=== PATIENT | female | born 1950 | race African-American/Black ===

== ENCOUNTER 2016-10-07 18:36 | Emergency (ER) | payer MEDICARE, MEDICAID ==
[~2016-10-07] VITALS: Ht 172.7 cm; Wt 113.4 kg
[~2016-10-07 18:36] MED LIST: AMIT50TA3 PO; AMLO1CAP9 PO; CA C1TAB70 PO; CALC-20 PO; MULT1TAB PO; RIVA10TA PO; SIMV40TA5 PO; ZOLP10TA2 PO
[2016-10-07] MEDS ORDERED: RIVAROXABAN 10 MG TABLET PO SCH (19:00)
--- NOTE | 2016-10-07 19:11 | NUR ---
PT TAKES MED AURY OUT FOR 1 WEEK WE DO NOT CARRY THIS MED MD GAVE RX PT. VERBALIZED UNDERSTANDING OF AFTERCARE INSTRUCTIONS.Patient discharged to home in stable condition. Written and verbal after care instructions given. Patient verbalizes understanding of instruction.
[2016-10-07 19:14] VITALS: BP 145/85
== END 2016-10-07 19:16 | disposition home or self-care (01) ==
LOC: ER 18:42
DX: Z76.0 Encounter for issue of repeat prescription (principal); E11.9 Type 2 diabetes mellitus without complications; I10 Essential (primary) hypertension; Z86.711 Personal history of pulmonary embolism; Z79.01 Long term (current) use of anticoagulants; Z86.718 Personal history of other venous thrombosis and embolism
CPT/HCPCS: 99283; A4606 ×2; Z7610

== ENCOUNTER 2016-12-08 20:55 | Inpatient (IN) | payer MEDICARE, MEDICAID ==
[~2016-12-08] VITALS: Ht 165.1 cm; Wt 123.4 kg
--- NOTE | 2016-12-08 21:05 | NUR ---
PT BIB DAUGHTER, WC TO ER BED 7 PT C/O MID STERNAL CHEST PAIN WITH SOB X 1 DAY, PT AOX3 RR EVEN AND UNLABORED. NO SOB NOTED. NAD NOTED. NO NVD AT THIS TIME. PT NOT DIAPHORETIC. PT GOWNED AND PLACED ON MONITOR. DR. CALIXTO AT BEDSIDE. PT STATES HX OF PE AND ON BLOOD THINNERS.
[2016-12-08 21:14] LABS: BASOPHILS % (AUTO) 0.4 % (0.0-2.0); EOSINOPHILS # (AUTO) 0.1 /CMM (0.0-0.7); EOSINOPHILS % (AUTO) 1.5 % (0.0-6.0); HEMATOCRIT 43 % (33-45); HEMOGLOBIN 14.1 g/dL (11.5-14.8); LYMPHOCYTES # (AUTO) 1.8 /CMM (0.8-4.8); LYMPHOCYTES % (AUTO) 19.7 % (20.0-44.0); MEAN CORPUSCULAR HEMOGLOBIN 28 PG (26.0-33.0); MEAN CORPUSCULAR HGB CONC 33 g/dl (31.0-36.0); MEAN CORPUSCULAR VOLUME 84 fL (82-100); MONOCYTES # (AUTO) 0.3 /CMM (0.1-1.30); MONOCYTES % (AUTO) 3.5 % (2.0-12.0); NEUTROPHILS # (AUTO) 7.1 /CMM (1.8-8.9); NEUTROPHILS % (AUTO) 74.9 % (43.0-81.0); PLATELET COUNT (AUTO) 279 /CMM (150-450); RDW COEFFICIENT OF VARIATION 13.4 (11.5-15.0); RED BLOOD CELL COUNT(AUTO) 5.13 MIL/uL (4.0-5.2); WHITE BLOOD COUNT (AUTO) 9.3 K/uL (4.3-11.0)
[2016-12-08] MEDS ORDERED: ONDANSETRON HCL/PF 4 MG/2 ML VIAL ONE (21:19)
[2016-12-08] MEDS ORDERED: ASPIRIN 81 MG TAB.CHEW ONE (21:20)
[2016-12-08] MEDS ORDERED: HYDROMORPHONE 1 MG/1 ML DISP.SYRIN ONE (21:20)
[2016-12-08 21:24] LABS: CALCIUM, SERUM 8.7 mg/dL (8.5-10.1); CARBON DIOXIDE 27 mmol/L (21-32); CHLORIDE 104 mmol/L (98-107); CREATININE 1.1 mg/dL (0.6-1.3); GLUCOSE 222 mg/dL (74-106); POTASSIUM 3.3 mmol/L (3.5-5.1); SODIUM SERUM 140 mmol/L (136-145); UREA NITROGEN, BLOOD 16 mg/dL (7-18)
[2016-12-08 21:27] LABS: INR 1.02 (0.87-1.13); PROTHROMBIN TIME 10.6 SECS (9.5-12.7)
[2016-12-08] MEDS ORDERED: IV NS 0.9% 1,000 ML BAG IV ONE (21:30)
[2016-12-08] MEDS ORDERED: ASPIRIN 81 MG TAB.CHEW PO ONE (21:30)
[2016-12-08] MEDS ORDERED: HYDROMORPHONE INJ 2 MG/ML DISP.SYRIN IV ONE (21:30)
[2016-12-08] MEDS ORDERED: ONDANSETRON HCL/PF 4 MG/2 ML VIAL IVP ONE (21:30)
[2016-12-08 21:31] LABS: TROPONIN I < 0.017 ng/mL (0.00-0.056)
[2016-12-08 21:36] LABS: ALANINE AMINOTRANSFERASE 17 U/L (12-78); ALBUMIN 3.4 g/dL (3.4-5.0); ALKALINE PHOSPHATASE 95 U/L (46-116); ASPARTATE AMINOTRANSFERASE 14 U/L (15-37); B-TYPE NATRIURETIC PEPTIDE 173 PG/ML (0-125); BILIRUBIN,DIRECT 0.1 mg/dL (0.0-0.2); BILIRUBIN,TOTAL 0.4 mg/dL (0.2-1.0); TOTAL PROTEIN, SERUM 7.4 g/dL (6.4-8.2)
--- NOTE | 2016-12-08 21:37 | NUR ---
RADIOLOGY AT BEDSIDE FOR CXR
[2016-12-08] MEDS ORDERED: IV NS 0.9% 250 ML IV ONE (21:44)
[2016-12-08] MEDS ORDERED: IOHEXOL-350 100 ML VIAL IV ONE (21:44)
--- NOTE | 2016-12-08 21:45 | NUR ---
PT REFUSED IVP DILAUDID 0.5MG. RISK AND BENEFITS EXPLAINED X3. PT STRONGLY REFUSED. AWARE. MEDICATION WASTED WITH TRICIA RUIZ.
--- NOTE | 2016-12-08 21:46 | NUR ---
IVP DILAUDID 0.5MG WASTED WITH TRICIA ELIZABETH.
--- NOTE | 2016-12-08 21:50 | NUR ---
PT REFUSED ZOFRAN IVP. RISK AND BENEFITS EXPLAINED X 3. PT STRONGLY REFUSED.
[2016-12-08] MEDS ORDERED: KETOROLAC TROMETHAMINE INJ 30 MG/ML VIAL ONE (22:15)
--- NOTE | 2016-12-08 22:18 | NUR ---
PT TO RADIOLOGY FOR CT PULMO ANGIO.
[2016-12-08] MEDS ORDERED: KETOROLAC TROMETHAMINE INJ 30 MG/ML VIAL IV PRN (22:30)
--- NOTE | 2016-12-08 22:39 | NUR ---
PT RETURNED FROM CT.
[2016-12-08] MEDS ORDERED: OXYC15TA2 PO (22:59)
[2016-12-08] MEDS ORDERED: DULO30CA2 PO (22:59)
[2016-12-08] MEDS ORDERED: CANA100T PO (22:59)
[2016-12-08] MEDS ORDERED: GABA-534 PO (22:59)
[2016-12-08] MEDS ORDERED: FLUT1BLS IH (22:59)
[2016-12-08] MEDS ORDERED: LOSA100T15 PO (22:59)
--- NOTE | 2016-12-08 23:16 | NUR ---
DR. ANN SPOKE TO PT REGARDING RESULTS.
--- NOTE | 2016-12-08 23:18 | NUR ---
REPORT GIVEN TO LYUDMILA CLARKE FOR TELE BED 108
--- NOTE | 2016-12-08 23:31 | NUR ---
PT ASSIGNED TO 105.
--- NOTE | 2016-12-08 23:37 | NUR ---
PT TRANSFERRED TO TELE BED 105 PER ACLS PROTOCOL.
[2016-12-08 23:40] VITALS: BP 99/40
--- NOTE | 2016-12-08 23:58 | NUR ---
TELE/RN NOTES: RECEIVED PT. VIA STRETCHER W/ DAUGHTER W/ NURSE GLENN . PT. AMBULATORY W/ CANE USED BATHROOM. ADMITTING DX. OF CHEST PAIN. A/O X 4. NOT IN ANY ACUTE RESPIRATORY DISTRESS. ORIENTED TO ROOM AND CALL LIGHT. BODY ASSESSMENT DONE W/ NO SKIN ISSUES. MALENA CONTRERAS [phone] CELL FOR ANY ISSUES. PT. WEARS GLASSES AT BEDSIDE. ON TELE MONITOR SINUS W/ OCC. PVC'S. LFA # 20 SL PATENT AND INTACT W/ NO S/S OF INFECTION OR INFILTRATION NOTED. CALL LIGHT W/ REACH. DR. HERNÁNDEZ HERE W/ NEW ORDERS NOTED AND CARRIED OUT. WILL CONTINUE TO MONITOR.
[2016-12-09] VITALS (7 sets, daily range): BP systolic 110–136; BP diastolic 55–77
[2016-12-09] MEDS ORDERED: POTASSIUM CHLORIDE 10 MEQ TABLET.SA ONE (00:17)
[2016-12-09] MEDS ORDERED: HYDROCODONE/APAP 5/325MG 1 EACH TABLET ONE (00:19)
[2016-12-09] MEDS ORDERED: Z GUARD REMEDY 2 OZ OINT TP PRN (00:30)
[2016-12-09] MEDS ORDERED: ZOLPIDEM TARTRATE 5 MG TABLET PO PRN (00:30)
[2016-12-09] MEDS ORDERED: ACETAMINOPHEN 325 MG TABLET PO PRN (00:30)
[2016-12-09] MEDS ORDERED: ONDANSETRON HCL/PF 4 MG/2 ML VIAL IVP PRN (00:30)
[2016-12-09] MEDS ORDERED: HYDROCODONE/APAP 5/325MG 1 EACH TABLET PO PRN (00:30)
[2016-12-09] MEDS ORDERED: MAG HYDROX/AL HYDROX/SIMETH 30 ML UDC PO PRN (00:30)
[2016-12-09] MEDS ORDERED: POTASSIUM CHLORIDE 10 MEQ TABLET.SA PO ONE (00:30)
[2016-12-09] MEDS ORDERED: oxyCODONE HCL SR 10MG TAB.SR.12H PO ONE ×2 (01:30→01:45)
--- NOTE | 2016-12-09 01:30 | NUR ---
CIVIL CAD DESIGNER NOTES PATIENT WITH CHEST PAIN NON-RADIATING, PRESSURE LIKE. REFUSED TO TAKE NORCO FOR PAIN. STATES SHE HAS OXYCODONE FOR PAIN AT HOME. OXYCODONE IN MED MD MOLINA RECONCILED MEDICATIONS, OXYCODONE STATES CONVERTED AND NOT ON EMAR. PER DR. HERNÁNDEZ OK TO GIVE OXYCONTIN 10MG ONE TIME FOR PAIN AT THIS TIME. NOTED. WILL CONTINUE TO MONITOR.
[2016-12-09 06:28] LABS: BASOPHILS % (AUTO) 0.2 % (0.0-2.0); EOSINOPHILS # (AUTO) 0.2 /CMM (0.0-0.7); EOSINOPHILS % (AUTO) 2.1 % (0.0-6.0); HEMATOCRIT 41 % (33-45); HEMOGLOBIN 13.4 g/dL (11.5-14.8); LYMPHOCYTES % (AUTO) 26.5 % (20.0-44.0); MEAN CORPUSCULAR HEMOGLOBIN 28 PG (26.0-33.0); MEAN CORPUSCULAR HGB CONC 33 g/dl (31.0-36.0); MEAN CORPUSCULAR VOLUME 85 fL (82-100); MONOCYTES # (AUTO) 0.6 /CMM (0.1-1.30); MONOCYTES % (AUTO) 8.1 % (2.0-12.0); NEUTROPHILS # (AUTO) 4.7 /CMM (1.8-8.9); NEUTROPHILS % (AUTO) 63.1 % (43.0-81.0); PLATELET COUNT (AUTO) 220 /CMM (150-450); RDW COEFFICIENT OF VARIATION 14.4 (11.5-15.0); RED BLOOD CELL COUNT(AUTO) 4.77 MIL/uL (4.0-5.2); WHITE BLOOD COUNT (AUTO) 7.4 K/uL (4.3-11.0)
[2016-12-09 06:51] LABS: CALCIUM, SERUM 8.4 mg/dL (8.5-10.1); CREATININE 0.8 mg/dL (0.6-1.3); MAGNESIUM 2.2 mg/dL (1.8-2.4); PHOSPHORUS 3.8 mg/dL (2.5-4.9); POTASSIUM 3.8 mmol/L (3.5-5.1)
[2016-12-09] MEDS ORDERED: MAG HYDROX/AL HYDROX/SIMETH 30 ML UDC ONE (07:10)
--- NOTE | 2016-12-09 08:00 | NUR ---
TELE1/RN AM SHIFT INITIAL NOTES RECEIVED PT AWAKE SITTING IN BED, A/O X 4, PLEASANT, NO ACUTE CHANGE OF CONDITION NOTED. PT COMPLAINT OF EPIGASTRIC PAIN, MAALOX WAS GIVEN EARLIER BY PM NURSE. ON ROOM AIR SATURATING @ 99%, LUNG SOUNDS CLEAR, ON TELE MONITORING WITH SINUS RHYTHM, HR 74. IV SITE FLUSHED, PATENT WITH NO S/S INFECTION, CL. NOTED WITH NON-PITTING EDEMA ON LOWER LEGS. AWAITING FOR MEDICATIONS TO BE VERIFIED. CL WITHIN REACHED AND SAFETY MAINTAINED. ON GOING MONITORING.
[2016-12-09] MEDS: FLUTICASONE/VILANTEROL 1 EACH BLST.W.DEV IH SCH (09:18)
[2016-12-09] MEDS: GABAPENTIN 300 MG CAPSULE PO SCH ×4 (09:20→17:04)
[2016-12-09] MEDS: LOSARTAN POTASSIUM 50 MG TABLET PO SCH ×2 (09:21→11:55)
[2016-12-09] MEDS: oxyCODONE IR immediate release 5 MG CAPSULE PO SCH ×4 (09:21→17:05)
[2016-12-09] MEDS: AMITRIPTYLINE HCL 25 MG TABLET PO SCH ×2 (09:22→11:56)
[2016-12-09] MEDS: DULOXETINE HCL 30 MG CAPSULE.DR PO SCH ×2 (09:22→11:55)
[2016-12-09] MEDS: MULTIPLE VIT (LYCOPENE/FA/MV,CA,IRON,MIN/LUT)1 TAB PO SCH ×2 (09:22→11:54)
[2016-12-09] MEDS: CALCIUM CARB 600MG /VIT D 1 EACH TABLET PO SCH ×2 (09:30→11:54)
--- NOTE | 2016-12-09 09:59 | NUR ---
TELE1/RN ROUNDS - DR. CUELLAR PT SEEN & EXAMINED BY DR. CUELLAR. NO NEW ORDERS RECEIVED AT THIS TIME. MONITORING CONTINUED.
[2016-12-09] MEDS ORDERED: NITROGLYCERIN 0.4 MG/TAB BOTTLE SL PRN (10:30)
[2016-12-09] MEDS ORDERED: *INSULIN REGULAR(HUMULIN R)HUM 100 UNIT/ML VIAL SQ PRN (10:30)
[2016-12-09] MEDS ORDERED: DEXTROSE 50%-WATER 50 ML DISP.SYRIN IV PRN (10:30)
[2016-12-09] MEDS ORDERED: INSULIN REGULAR, HUMAN 100 UNIT/ML 3 ML VIAL SQ PRN (10:30)
--- NOTE | 2016-12-09 11:58 | NUR ---
TELE1/RN AM MEDS AFTER EXPLAINING TO THE PT ALL THE MEDICATIONS SHE IS ABOUT TO TAKE THIS MORNING, AFTER ABOUT 15-20 MINUTES HAS NOT TAKEN THE MEDICATION. I ASK IF SHE HAS ANY QUESTIONS ABOUT THE MEDICATION. SHE SAID THAT THE MEDICATIONS DO NOT LOOK THE SAME THE ONES SHE TAKES AT HOME, I FURTHER EXPLAIN THAT MEDICATIONS LOOKS DIFFERENT DEPENDING ON THE MANAGER BOOKS WHO MAKES THE MEDICATION. ALTHOUGH SHE IS NOT REFUSING THE MEDICATIONS SHE SAID SHE WANTED TO MAKE IT SURE WANT SHE IS TAKING. I COULD NOT SHOW HER THE PACKAGING OF THE MEDICATIONS SINCE IT WAS ALREADY IN THE TRASH. I HAVE CALLED A PHARMACIST THIS MORNING TO HELP ME GET MEDICATIONS AGAIN WITH PACKAGING INTACT SO THAT WE CAN COMPARE BUT THE PHARMACIST WAS ALREADY BUSY AT THIS TIME AND COULD NOT COME TO SEE THE PATIENT PROMISED. I HAVE CALLED THE PHARMACIST AGAIN AND HAVE DECIDED TO WASTE ALL THE MEDICATIONS TAKEN THIS MORNING, AND GET NEW ONES AND SHOW EACH ONE OF THE MEDICATIONS UN-OPENED FOR THE PT TO SEE, I OBSERVE THE PT TAKE THE MEDICATIONS ONE BY ONE SHE OPEN THE MEDICATION'S PACKAGING AND PT FINALLY TAKE ALL THE AM MEDS. EXPLAINED THE SITUATION TO CHARGE NURSE AND NURSING EXCHANGE TELLER.
--- NOTE | 2016-12-09 12:11 | NUR ---
CASEY GODOY SCHEDULED NEURONTIN @ 1300, HELD D/T PT JUST TAKEN HER AM MEDS THAT INCLUDED NEURONTIN. Addendum: 12/09/16 at 1405 by CHRISTOFER MEDINA RN ADDENDUM: SCHEDULED OXYCODONE NOT GIVEN D/T PT HAS JUST TAKEN HER AM MEDS THAT INCLUDED OXYCODONE
--- NOTE | 2016-12-09 16:00 | NUR ---
TELE1/RN AFTERNOON ROUNDS PT IN BED TAKING A NAP. NO CHANGE OF CONDITION. ON GOING MONITORING.
[2016-12-09] MEDS: RIVAROXABAN 10 MG TABLET PO SCH (17:07)
--- NOTE | 2016-12-09 19:34 | NUR ---
TELE1/RN AM SHIFT END NOTES ALL NEEDS MET. NO CHANGE OF CONDITION NOTED DURING THE SHIFT. PT ENDORSED TO PM NURSE TO CONTINUE CARE. CL WITHIN REACHED AND SAFETY MAINTAINED.
--- NOTE | 2016-12-09 20:00 | NUR ---
Received patient awake alert and oriented x 4.VS stable.Respiration even and unlabored.Tele SR.Ambulated to restroom with mild sob on exertion.Noted LE extremity edema both elevated on pillows.Denies chest pain,nausea or vomiting.Plan of care explained to patient and verbalized understanding.LFA saline lock intact.
[2016-12-09] MEDS: MAGNESIUM HYDROXIDE 30 ML UDC PO PRN (20:14)
--- NOTE | 2016-12-09 20:15 | NUR ---
MOM given as PRN per patient request.No BM today.
--- NOTE | 2016-12-09 20:40 | NUR ---
Patient daughter brought patient home medication INVOKA( Diabetic pill).Unable to order in [employer].Will notify pharmacy in am.Kept in patient cassette.
[2016-12-10] VITALS (7 sets, daily range): BP systolic 93–152; BP diastolic 65–88
--- NOTE | 2016-12-10 06:25 | NUR ---
Patient resting.VS remains stable.SR no ectopies.Remains chest pain free.Per patient no BM post mom. Will endorse to AM shift RN for continuity of care.Needs attended.
[2016-12-10 06:52] LABS: BASOPHILS % (AUTO) 0.3 % (0.0-2.0); EOSINOPHILS # (AUTO) 0.2 /CMM (0.0-0.7); EOSINOPHILS % (AUTO) 2.5 % (0.0-6.0); HEMATOCRIT 44 % (33-45); HEMOGLOBIN 14.6 g/dL (11.5-14.8); LYMPHOCYTES # (AUTO) 1.7 /CMM (0.8-4.8); LYMPHOCYTES % (AUTO) 21.8 % (20.0-44.0); MEAN CORPUSCULAR HEMOGLOBIN 28 PG (26.0-33.0); MEAN CORPUSCULAR HGB CONC 33 g/dl (31.0-36.0); MEAN CORPUSCULAR VOLUME 85 fL (82-100); MONOCYTES # (AUTO) 0.5 /CMM (0.1-1.30); MONOCYTES % (AUTO) 6.6 % (2.0-12.0); NEUTROPHILS # (AUTO) 5.3 /CMM (1.8-8.9); NEUTROPHILS % (AUTO) 68.8 % (43.0-81.0); PLATELET COUNT (AUTO) 234 /CMM (150-450); RDW COEFFICIENT OF VARIATION 14.3 (11.5-15.0); WHITE BLOOD COUNT (AUTO) 7.8 K/uL (4.3-11.0)
[2016-12-10 07:13] LABS: TROPONIN I < 0.017 ng/mL (0.00-0.056)
[2016-12-10 07:14] LABS: ALANINE AMINOTRANSFERASE 23 U/L (12-78); ALBUMIN 3.3 g/dL (3.4-5.0); ALKALINE PHOSPHATASE 87 U/L (46-116); ASPARTATE AMINOTRANSFERASE 17 U/L (15-37); BILIRUBIN,TOTAL 0.5 mg/dL (0.2-1.0); CARBON DIOXIDE 29 mmol/L (21-32); CHLORIDE 102 mmol/L (98-107); CREATININE 0.7 mg/dL (0.6-1.3); GLUCOSE 101 mg/dL (74-106); MAGNESIUM 2.4 mg/dL (1.8-2.4); PHOSPHORUS 3.4 mg/dL (2.5-4.9); POTASSIUM 3.8 mmol/L (3.5-5.1); SODIUM SERUM 138 mmol/L (136-145); TOTAL PROTEIN, SERUM 7.5 g/dL (6.4-8.2); UREA NITROGEN, BLOOD 12 mg/dL (7-18)
[2016-12-10] MEDS: BLOOD SUGAR DIAGNOSTIC 1 EACH STRIP IN SCH (07:55)
--- NOTE | 2016-12-10 08:00 | NUR ---
TELE1/RN AM SHIFT INITIAL NOTES RECEIVED PT AWAKE SITTING IN BED, A/O X 4, PT DENIES CHEST PAIN. NO ACUTE CHANGE OF CONDITION NOTED. ON ROOM AIR SATURATING @ 96%. ON TELE WITH SINUS RHYTHM, HR 77. IV SITE FLUSHED, PATENT. GLUCOSE CHECKED, 103. PT IS COMFORTABLE AT THIS TIME, SCHEDULED AM MEDS TO BE GIVEN. CL WITHIN REACHED AND SAFETY MAINTAINED. ON GOING MONITORING. Addendum: 12/10/16 at 1140 by CHRISTOFER MEDINA RN ADDENDUM: PT WAS GIVEN HER HOME MED INVOKANA. MEDICATION THEN ENDORSED TO PHARMACY FOR DISPENSING.
[2016-12-10] MEDS: FLUTICASONE/VILANTEROL 1 EACH BLST.W.DEV IH SCH (09:04)
[2016-12-10] MEDS: CALCIUM CARB 600MG /VIT D 1 EACH TABLET PO SCH (09:06)
[2016-12-10] MEDS: MULTIPLE VIT (LYCOPENE/FA/MV,CA,IRON,MIN/LUT)1 TAB PO SCH (09:06)
[2016-12-10] MEDS: LOSARTAN POTASSIUM 50 MG TABLET PO SCH (09:06)
[2016-12-10] MEDS: DULOXETINE HCL 30 MG CAPSULE.DR PO SCH (09:06)
[2016-12-10] MEDS: oxyCODONE IR immediate release 5 MG CAPSULE PO SCH ×3 (09:06→16:48)
[2016-12-10] MEDS: GABAPENTIN 300 MG CAPSULE PO SCH ×3 (09:06→16:48)
[2016-12-10] MEDS: AMITRIPTYLINE HCL 25 MG TABLET PO SCH (09:06)
--- NOTE | 2016-12-10 09:45 | NUR ---
TELE1/RN ROUNDS - DR. CUELLAR PT SEEN & EXAMINED BY DR. CUELLAR. CLARIFIED WITH MD THAT WILL HAVE MYOCARDIAL STRESS TEST TOMORROW, PT AWARE. CONSENT FOR STRESS TEST OBTAINED FROM PT, FAILED IN CHART.
[2016-12-10 10:07] LABS: APPEARANCE,URINE CLEAR (CLEAR); BILIRUBIN,URINE NEGATIVE (NEGATIVE); BLOOD, URINE 1+ Ery/uL (NEGATIVE); COLOR,URINE YELLOW (YELLOW); KETONES,URINE NEGATIVE (NEGATIVE); LEUKOCYTE ESTERASE ,URINE NEGATIVE (NEGATIVE); NITRITE, URINE NEGATIVE (NEGATIVE); PROTEIN,URINE NEGATIVE (NEGATIVE); UGLUCOSE 2+ mg/dL (NEGATIVE); UROBILINOGEN,URINE 0.2 EU/dL (0.2)
[2016-12-10 10:40] LABS: BACTERIA,URINE None seen /HPF (None Seen); SQUAMOUS EPITHELIAL CELL,UR Few /HPF (None Seen); WBC,URINE 0-2 /HPF (0-3)
--- NOTE | 2016-12-10 11:50 | NUR ---
TELE1/RN PHYSICAL THERAPY EVAL PT BEING SEEN BY PHYSICAL THERAPIST. MONITORING.
[2016-12-10] MEDS: RIVAROXABAN 10 MG TABLET PO SCH (16:49)
--- NOTE | 2016-12-10 20:00 | NUR ---
TELE1/RN AM SHIFT END NOTES NO ACUTE CHANGE OF CONDITION NOTED DURING THE SHIFT. ALL NEEDS MET. PT ENDORSED TO PM NURSE TO CONTINUE CARE. ALSO ENDORSED TO PLACE PT ON NPO AFTER MIDNIGHT FOR MYOCARDIAL STRESS TEST TOMORROW. CL WITHIN REACHED AND SAFETY MAINTAINED.
--- NOTE | 2016-12-10 20:16 | NUR ---
RN INITIAL NOTE RECEIVED PT IN NO ACUTE DISTRESS IN BED. PT IS A/O X 4 AND ABLE TO MAKE NEEDS KNOWN. PT IS ON TELE WITH SR ON THE MONITOR. PT NOT C/O ANY SOB, DIFFICULTY BREATHING OR PAIN AT THIS TIME. PT IS ON O2 VIA NC @ 2LPM AND TOLERATING WELL WITH O2 SAT @ 98%. PT HAS L FOREARM 20G THAT IS CLEAN DRY INTACT AND PATENT WITH SALINE LOCK. BED IN LOW LOCK POSITION WITH RIALS UP X 2. CALL LIGHT WITHIN REACH AND ALL SAFETY MEASURES ENSURED AND CARRIED OUT. WILL CONTINUE TO MONITOR FOR ANY CHANGES IN CONDITION.
[2016-12-10] MEDS: MAGNESIUM HYDROXIDE 30 ML UDC PO PRN (20:56)
[2016-12-11] VITALS: BP 138/82
[2016-12-11 04:00] VITALS: BP 123/84
--- NOTE | 2016-12-11 06:48 | NUR ---
RN CLOSING NOTE PT REMAINS IN NO ACUTE DISTRESS IN BED. PT DID NOT HAVE ANY SIGNIFICANT CHANGE IN CONDITION DURING SHIFT. ALL NEEDS MET, ALL ORDERS CARRIED OUT. PT REMAINS NPO POST MIDNIGHT. WILL ENDORSE CARE TO AM RN FOR CONTINUITY OF CARE.
[2016-12-11 07:15] LABS: BASOPHILS % (AUTO) 0.5 % (0.0-2.0); EOSINOPHILS # (AUTO) 0.2 /CMM (0.0-0.7); EOSINOPHILS % (AUTO) 2.6 % (0.0-6.0); HEMATOCRIT 45 % (33-45); LYMPHOCYTES # (AUTO) 1.6 /CMM (0.8-4.8); LYMPHOCYTES % (AUTO) 20.5 % (20.0-44.0); MEAN CORPUSCULAR HEMOGLOBIN 28 PG (26.0-33.0); MEAN CORPUSCULAR HGB CONC 33 g/dl (31.0-36.0); MEAN CORPUSCULAR VOLUME 85 fL (82-100); MONOCYTES # (AUTO) 0.5 /CMM (0.1-1.30); MONOCYTES % (AUTO) 6.6 % (2.0-12.0); NEUTROPHILS # (AUTO) 5.5 /CMM (1.8-8.9); NEUTROPHILS % (AUTO) 69.8 % (43.0-81.0); PLATELET COUNT (AUTO) 239 /CMM (150-450); RDW COEFFICIENT OF VARIATION 14.3 (11.5-15.0); RED BLOOD CELL COUNT(AUTO) 5.31 MIL/uL (4.0-5.2); WHITE BLOOD COUNT (AUTO) 7.9 K/uL (4.3-11.0)
--- NOTE | 2016-12-11 07:23 | NUR ---
RN NOTES RECEIVED PT IN STABLE CONDITION RESTING IN BED. A&0X3, ON 2L NC NO SOB OR DISTRESS NOTED. SR ON THE TELE MONITOR. LFA 20G IV SITE DRY AND INTACT WITH NO IVF. NO COMPLAINTS OF PAIN AT THIS TIME. BED LOCKED AND IN LOWEST POSITION, SIDE RAILS UPX3, WILL CONT TO MONITOR
[2016-12-11 07:24] LABS: CALCIUM, SERUM 9.1 mg/dL (8.5-10.1); POTASSIUM 4.2 mmol/L (3.5-5.1)
[2016-12-11 08:00] VITALS: BP 116/62
[2016-12-11] MEDS ORDERED: REGADENOSON 0.4 MG/5 ML DISP.SYRIN IVP ONE (08:00)
--- NOTE | 2016-12-11 08:00 | NUR ---
RN NOTES AM MEDS HELD, WILL ADMINISTER AFTER SCAN
[2016-12-11] MEDS ORDERED: CANAGLIFLOZIN 100 MG PO SCH (09:00)
[2016-12-11] MEDS: CALCIUM CARB 600MG /VIT D 1 EACH TABLET PO SCH (13:33)
[2016-12-11] MEDS: MULTIPLE VIT (LYCOPENE/FA/MV,CA,IRON,MIN/LUT)1 TAB PO SCH (13:33)
[2016-12-11] MEDS: GABAPENTIN 300 MG CAPSULE PO SCH ×3 (13:33→17:07)
[2016-12-11] MEDS: FLUTICASONE/VILANTEROL 1 EACH BLST.W.DEV IH SCH (13:33)
[2016-12-11] MEDS: LOSARTAN POTASSIUM 50 MG TABLET PO SCH (13:34)
[2016-12-11] MEDS: AMITRIPTYLINE HCL 25 MG TABLET PO SCH (13:34)
[2016-12-11] MEDS: BLOOD SUGAR DIAGNOSTIC 1 EACH STRIP IN SCH (13:35)
[2016-12-11] MEDS: DULOXETINE HCL 30 MG CAPSULE.DR PO SCH (13:35)
[2016-12-11] MEDS: oxyCODONE IR immediate release 5 MG CAPSULE PO SCH ×2 (13:38→17:07)
[2016-12-11 16:00] VITALS: BP 109/57
[2016-12-11] MEDS: RIVAROXABAN 10 MG TABLET PO SCH (17:09)
--- NOTE | 2016-12-11 18:32 | NUR ---
RN NOTES PT TOLERATED STRESS TEST AND LEXISCAN, IN STABLE CONDITION. PER DR HAWK, DR CUELLAR JUST MADE HIM AWARE STRESS TEST RESULTS ARE OK FOR THE PT TO GO HOME WITH. WILL ENDORSE TO ONCOMING SHIFT.
--- NOTE | 2016-12-11 19:10 | NUR ---
RN NOTE RECEIVED PT IN NO ACUTE DISTRESS IN BED. PT IS DISCHARGED AND AWAITING DAUGHTER TO COME AND PICK HER UP TO TRANSPORT PT HOME. IV REMOVED BY DAY SHIFT RN. ALL SAFETY MEASURES ENSURED AND CARRIED OUT. WILL CONTINUE TO MONITOR TILL PT'S DAUGHTER COMES TO [employer] TEAM LEAD PT.
--- NOTE | 2016-12-11 19:30 | NUR ---
RN NOTE PT WAS TRANSPORTED OUT OF THE HOSPITAL VIA WHEEL CHAIR. PT TOLERATED TRANSFER TO CAR INDEPENDENTLY. PT LEFT HOSPITAL WITH DAUGHTER IN STABLE CONDITION.
== END 2016-12-11 19:30 | disposition home or self-care (01) | DRG 206 ==
LOC: ER 21:04 → TELE1 22:10 → MEDSG1 12-11 09:40
PROVIDERS: ADMIT Family Medicine; ATTEND Family Medicine
DX: M94.0 Chondrocostal junction syndrome [Tietze] (principal); E44.0 Moderate protein-calorie malnutrition; I11.9 Hypertensive heart disease without heart failure; Z68.42 Body mass index [BMI] 45.0-49.9, adult; E66.01 Morbid (severe) obesity due to excess calories; I25.10 Atherosclerotic heart disease of native coronary artery without angina pectoris; E11.9 Type 2 diabetes mellitus without complications; E78.5 Hyperlipidemia, unspecified; Z79.01 Long term (current) use of anticoagulants; Z86.711 Personal history of pulmonary embolism; Z86.718 Personal history of other venous thrombosis and embolism; Z96.659 Presence of unspecified artificial knee joint; J45.909 Unspecified asthma, uncomplicated; Z98.61 Coronary angioplasty status; Z79.84 Long term (current) use of oral hypoglycemic drugs
CPT/HCPCS: 36415; 71010-TC; 80048-TC; 80053-TC; 80061-TC; 80076-TC; 81000-TC; 82962-TC; 83735-TC; 83880; 84100-TC; 84484-TC; 85025-TC; 85730-TC; 87081-TC; 93307-TC; A4606; A9502; J1170; J1815; J1885; J2405; J2785; J7030; J7050; Q9967; Z7610

== ENCOUNTER 2020-10-16 23:19 | Emergency (ER) | payer MEDICARE, OTHER ==
[~2020-10-16] VITALS: Ht 170.2 cm; Wt 127.0 kg
[~2020-10-16 23:19] MED LIST changes: +AMLO-102 PO; -AMLO1CAP9 PO; +CALC-1180 PO; -CALC-20 PO; +CANA100T PO; +DULO30CA2 PO; +FLUT1BLS IH; +GABA-534 PO; +LOSA100T31 PO; +OXYC15TA2 PO; +SIMV-49 PO; -SIMV40TA5 PO; -ZOLP10TA2 PO
[2020-10-16] MEDS ORDERED: DEXAMETHASONE SOD PHOSPHATE 10 MG/ML VIAL ONE (23:55)
[2020-10-16] MEDS ORDERED: HYDROCODONE/APAP 5/325MG TABLET ONE (23:56)
[2020-10-16] MEDS ORDERED: HYDR-3972 PO (23:56)
[2020-10-16] MEDS ORDERED: PRED50TA PO (23:56)
[2020-10-17] MEDS ORDERED: DEXAMETHASONE SOD PHOSPHATE 4 MG/ML VIAL IM ONE
[2020-10-17] MEDS ORDERED: HYDROCODONE/APAP 5/325MG TABLET PO ONE
--- NOTE | 2020-10-17 00:34 | NUR ---
Patient discharged to home in stable condition. Written and verbal after care instructions given. Patient verbalizes understanding of instruction. RX given
[2020-10-17 00:47] VITALS: BP 144/68
== END 2020-10-17 00:48 | disposition home or self-care (01) ==
LOC: ER 23:30
DX: S80.862A Insect bite (nonvenomous), left lower leg, initial encounter (principal); S80.861A Insect bite (nonvenomous), right lower leg, initial encounter; I10 Essential (primary) hypertension; J45.909 Unspecified asthma, uncomplicated; E11.9 Type 2 diabetes mellitus without complications; Z98.890 Other specified postprocedural states; Z88.8 Allergy status to other drugs, medicaments and biological substances; Z60.2 Problems related to living alone; Z79.899 Other long term (current) drug therapy; W57.XXXA Bitten or stung by nonvenomous insect and other nonvenomous arthropods, initial encounter; Y93.89 Activity, other specified; Y92.89 Other specified places as the place of occurrence of the external cause; Y99.8 Other external cause status
CPT/HCPCS: 96372; 99283; J1100

== ENCOUNTER 2020-12-20 15:56 | Emergency (ER) | payer MEDICARE, OTHER ==
[~2020-12-20] VITALS: Ht 170.2 cm; Wt 129.3 kg
[~2020-12-20 15:56] MED LIST changes: +PRED50TA PO
--- NOTE | 2020-12-20 16:06 | NUR ---
TO ER BED 8, C/O WORSENING SHORTNESS OF BREATH X 2 MONTH, AAOX3, BREATHING EVEN AND NON LABORED, CONNECTED TO MONITOR.
[2020-12-20] MEDS ORDERED: IOHEXOL-350 100 ML VIAL IV ONE (16:40)
[2020-12-20] MEDS ORDERED: IV NS 0.9% 250 ML IV ONE (16:41)
[2020-12-20 17:02] LABS: BASOPHILS # (AUTO) 0.1 K/uL (0.0-0.2); BASOPHILS % (AUTO) 1.1 % (0.0-2.0); EOSINOPHILS % (AUTO) 1.2 % (0.0-6.0); HEMATOCRIT 43 % (33-45); LYMPHOCYTES # (AUTO) 1.6 K/uL (0.8-4.8); LYMPHOCYTES % (AUTO) 16.1 % (20.0-44.0); MEAN CORPUSCULAR HGB CONC 33 g/dl (31.0-36.0); MEAN CORPUSCULAR VOLUME 83 fL (82-100); MONOCYTES # (AUTO) 0.8 K/uL (0.1-1.30); MONOCYTES % (AUTO) 7.6 % (2.0-12.0); NEUTROPHILS # (AUTO) 7.4 K/uL (1.8-8.9); PLATELET COUNT (AUTO) 294 K/uL (150-450); RED BLOOD CELL COUNT(AUTO) 5.13 MIL/uL (4.0-5.2)
[2020-12-20] MEDS ORDERED: PLEC3TAB PO (17:04)
[2020-12-20] MEDS ORDERED: CARV12.52 PO (17:04)
[2020-12-20] MEDS ORDERED: OMEP40CA21 PO (17:04)
[2020-12-20] MEDS ORDERED: CYAN10006 IM (17:04)
[2020-12-20] MEDS ORDERED: LINA290C PO (17:04)
[2020-12-20] MEDS ORDERED: FURO20TA4 PO (17:04)
[2020-12-20] MEDS ORDERED: EMPA25TA PO (17:04)
[2020-12-20] MEDS ORDERED: TIZA4TAB5 PO (17:04)
[2020-12-20] MEDS ORDERED: PRUC2TAB PO (17:04)
[2020-12-20] MEDS ORDERED: RIVA10TA PO (17:04)
[2020-12-20] MEDS ORDERED: ALBU8.5H8 IH (17:04)
[2020-12-20 18:32] LABS: CALCIUM, SERUM 9.1 mg/dL (8.5-10.1); CARBON DIOXIDE 29 mmol/L (21-32); CHLORIDE 108 mmol/L (98-107); GLUCOSE 94 mg/dL (74-106); POTASSIUM 4.5 mmol/L (3.5-5.1); SODIUM SERUM 143 mmol/L (136-145); UREA NITROGEN, BLOOD 14 mg/dL (7-18)
[2020-12-20] MEDS: FUROSEMIDE 40 MG/4 ML VIAL IV ONE (19:00)
[2020-12-20] MEDS ORDERED: FUROSEMIDE 40 MG/4 ML VIAL ONE (19:34)
[2020-12-20] MEDS ORDERED: FURO-145 PO (19:48)
[2020-12-20 20:07] VITALS: BP 142/69
--- NOTE | 2020-12-20 20:07 | NUR ---
IV removed. Catheter intact and site benign. Pressure and 4x4 applied to site. No bleeding noted.
--- NOTE | 2020-12-20 20:07 | NUR ---
Patient discharged to home in stable condition. Written and verbal after care instructions given. Patient verbalizes understanding of instruction and RX. Pt ambulated out of ED. VSS.
== END 2020-12-20 20:11 | disposition home or self-care (01) ==
LOC: ER 15:59
DX: R06.02 Shortness of breath (principal); I27.21 Secondary pulmonary arterial hypertension; J45.909 Unspecified asthma, uncomplicated; E11.9 Type 2 diabetes mellitus without complications; Z79.899 Other long term (current) drug therapy; Z98.890 Other specified postprocedural states; Z88.6 Allergy status to analgesic agent; Z60.2 Problems related to living alone
CPT/HCPCS: 36415; 71045; 71275; 80048; 83880; 84484; 85025; 85378; 93005 ×2; 96374; 99285; J1940; J7050; Q9967

== ENCOUNTER 2021-05-28 14:22 | Emergency (ER) | payer MEDICARE, OTHER ==
[~2021-05-28] VITALS: Ht 170.2 cm; Wt 125.6 kg
[~2021-05-28 14:22] MED LIST changes: +ALBU8.5H8 IH; -AMLO-102 PO; -CA C1TAB70 PO; -CALC-1180 PO; -CANA100T PO; +CARV12.52 PO; +CYAN10006 IM; +EMPA25TA PO; +FURO-145 PO; +FURO20TA4 PO; -GABA-534 PO; +LINA290C PO; +OMEP40CA21 PO; -OXYC15TA2 PO; +PLEC3TAB PO; -PRED50TA PO; +PRUC2TAB PO; +TIZA4TAB5 PO
--- NOTE | 2021-05-28 15:30 | NUR ---
70 yrs female walking in by yovanny c/o pain on RT midle toe hit here toe this joy
[2021-05-28 16:52] VITALS: BP 151/88
--- NOTE | 2021-05-28 16:52 | NUR ---
Patient discharged to home in stable condition. Written and verbal after care instructions given. Patient verbalizes understanding of instruction.
== END 2021-05-28 16:53 | disposition home or self-care (01) ==
LOC: ER 14:26
DX: S92.512A Displaced fracture of proximal phalanx of left lesser toe(s), initial encounter for closed fracture (principal); I10 Essential (primary) hypertension; J45.909 Unspecified asthma, uncomplicated; E11.9 Type 2 diabetes mellitus without complications; Z88.8 Allergy status to other drugs, medicaments and biological substances; Z60.2 Problems related to living alone; Z79.51 Long term (current) use of inhaled steroids; Z79.899 Other long term (current) drug therapy; W22.8XXA Striking against or struck by other objects, initial encounter; Y93.89 Activity, other specified; Y92.89 Other specified places as the place of occurrence of the external cause; Y99.8 Other external cause status
CPT/HCPCS: 73660-TC

== ENCOUNTER 2022-04-05 03:59 | Inpatient (IN) | payer MEDICARE, OTHER ==
[~2022-04-05] VITALS: Ht 170.2 cm; Wt 127.1 kg
--- NOTE | 2022-04-05 04:06 | NUR ---
[id number] from home low bp after taking laxative meds, and c/o lt ankle pain & swelling. Pt A/Ox4. tolerating R/A well with no resp distress. Safety measures in place. connected pt to POX and monitor.
[2022-04-05] MEDS ORDERED: IV NS 0.9% 1,000 ML BAG IV ONE (04:30)
--- NOTE | 2022-04-05 04:42 | NUR ---
LAC #20G S/L BLOOD COLLECTED AND SENT TO LAB
[2022-04-05 04:46] LABS: BASOPHILS % (AUTO) 0.1 % (0.0-2.0); EOSINOPHILS % (AUTO) 1.2 % (0.0-6.0); HEMATOCRIT 41 % (33-45); HEMOGLOBIN 13.3 g/dL (11.5-14.8); LYMPHOCYTES # (AUTO) 1.1 K/uL (0.8-4.8); LYMPHOCYTES % (AUTO) 11.5 % (20.0-44.0); MEAN CORPUSCULAR HGB CONC 32 g/dl (31.0-36.0); MEAN CORPUSCULAR VOLUME 84 fL (82-100); MONOCYTES # (AUTO) 0.5 K/uL (0.1-1.30); MONOCYTES % (AUTO) 5.2 % (2.0-12.0); NEUTROPHILS # (AUTO) 8.1 K/uL (1.8-8.9); PLATELET COUNT (AUTO) 247 K/uL (150-450); RED BLOOD CELL COUNT(AUTO) 4.92 MIL/uL (4.0-5.2); WHITE BLOOD COUNT (AUTO) 9.9 K/uL (4.3-11.0)
--- NOTE | 2022-04-05 04:54 | NUR ---
Arturo dale in [facility] - 04/05/22 at 0455 by JONE URINE COLLECTED AND SENT TO LAB
--- NOTE | 2022-04-05 04:55 | NUR ---
COVID ANTIGEN SWAB COLLECTED AND SENT TO LAB
[2022-04-05 04:58] LABS: CALCIUM, SERUM 8.9 mg/dL (8.5-10.1); CREATININE 1.3 mg/dL (0.6-1.3); POTASSIUM 3.5 mmol/L (3.5-5.1)
--- NOTE | 2022-04-05 05:03 | NUR ---
PT TAKEN TO CT VIA RENARD
--- NOTE | 2022-04-05 05:11 | NUR ---
PT RETURNED TO ER BED [address]
--- NOTE | 2022-04-05 05:24 | NUR ---
EPIC PANEL PAGED
[2022-04-05] MEDS ORDERED: ACETAMINOPHEN 325 MG TABLET PO PRN (06:00)
[2022-04-05] MEDS ORDERED: Z GUARD REMEDY 4 OZ OINT TP PRN (06:00)
[2022-04-05] MEDS ORDERED: MAG HYDROX/AL HYDROX/SIMETH 30 ML UDC PO PRN (06:00)
[2022-04-05] MEDS ORDERED: MAGNESIUM HYDROXIDE 30 ML UDC PO PRN (06:00)
[2022-04-05] MEDS ORDERED: ONDANSETRON HCL/PF 4 MG/2 ML VIAL IVP PRN (06:00)
[2022-04-05] MEDS ORDERED: IV D5/0.45 NACL 1,000 ML IV PRN (06:00)
[2022-04-05] MEDS ORDERED: ACETAMINOPHEN 325 MG TABLET ONE (06:11)
[2022-04-05] MEDS: PANTOPRAZOLE 40 MG TABLET.DR PO SCH (07:30)
[2022-04-05] MEDS ORDERED: LACT1CAP71 PO (08:40)
[2022-04-05] MEDS ORDERED: TURM500C9 PO (08:40)
--- NOTE | 2022-04-05 08:53 | NUR ---
report given to Lori CLARKE to continue care.
--- NOTE | 2022-04-05 09:25 | NUR ---
PATIENT TRANSFERED TO 309-1, ALL CARE ENDORSED TO TRICIA MCKEON
--- NOTE | 2022-04-05 09:45 | NUR ---
ADMISSION RN NOTES ADMITTED A 71 Y/O FEMALE TO THE UNIT AT 0915 VIA GURNEY ACCOMPANIED BY E.R. 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 PATIENT IS ALERT AND ORIENTED X4, ABLE TO MAKE NEEDS KNOWN. PT ORIENTED TO STAFF AND UNIT. V/S TAKEN AND RECORDED. PT ON ROOM AIR, TOLERATING WELL WITH SPO2 AT 95%. NO SOB NOTED AT THIS TIME. NOT IN ANY SIGN OF RESPIRATORY DISTRESS. LUNG SOUNDS CLEAR BILATERALLY UPON AUSCULTATION. TELE CHILDHOOD TEACHER WAS PLACED IN THE PT WITH CURRENT READING OF SINUS RHYTHM, HR 75. NO C/O OF CARDIAC DISTRESS VOICED OUT AT THIS TIME. ABDOMEN FIRM AND NON-TENDER. PT DENIES PAIN OR DISCOMFORT AT THIS TIME. SKIN IS INTACT, DRY, AND WARM. PHOTOGRAPHS OF THE LEFT ANKLE SWELLING TAKEN AND FILED IN THE CHART. SCOOBY WRAPPED HER LEFT ANKLE, ICE PACK APPLIED AND KEPT IT ELEVATED. NO OTHER SKIN ISSUES NOTED. IV ACCESS IN LAC G #20 INTACT AND PATENT. SAFETY MEASURES INITIATED: BED IN LOWEST AND LOCKED POSITION, SIDE RAILS UP X2, AND CALL LIGHT WITHIN REACH. WILL CONTINUE TO MONITOR PT.
--- NOTE | 2022-04-05 10:06 | NUR ---
RN NOTE PROTONIX MEDICATION SCHEDULED AT 0730 NOT ADMINISTERED. PT'S ARRIVED AT THE UNIT AND WAS ADMITTED AT 0915.
[2022-04-05] MEDS: METRONIDAZOLE 500MG/ NS 100ML 500 MG in PREMIX 1 EA IV SCH ×2 (10:55→17:30)
[2022-04-05] MEDS ORDERED: *INSULIN REGULAR(HUMULIN R)HUM 100 UNIT/ML VIAL SQ PRN (11:00)
[2022-04-05] MEDS ORDERED: DEXTROSE 50%-WATER 50 ML DISP.SYRIN IV PRN (11:00)
[2022-04-05] MEDS: INSULIN REGULAR, HUMAN 100 UNIT/ML 3 ML VIAL SQ PRN ×2 (12:33→16:59)
[2022-04-05] MEDS: BLOOD SUGAR DIAGNOSTIC 1 EACH STRIP VI SCH ×3 (12:33→21:32)
--- NOTE | 2022-04-05 17:23 | NUR ---
RN NOTE CALLED DR. CHRISTINA AND MADE HIM AWARE THAT PT COMPLAINING OF SEVERE LEFT ANKLE PAIN WITH PAIN SCALE LEVEL OF 8/10 AND PT JUST HAVE TYLENOL FOR PAIN. DR. CHRISTINA ORDERED TRAMADOL 50MG PO Q6HRS PRN. ORDERS CARRIED OUT.
[2022-04-05] MEDS: TRAMADOL HCL 50 MG TABLET PO PRN (17:30)
[2022-04-05] MEDS: RIVAROXABAN 10 MG TABLET PO SCH (17:31)
--- NOTE | 2022-04-05 17:32 | NUR ---
RN NOTE TRAMADOL 50MG ADMINISTERED ORDERED Q6HRS PRN FOR SEVERE PAIN. PT'S CURRENT PAIN LEVEL IS 8/10 TO HER LEFT ANKLE. WILL MONITOR AND REASSESS PT.
--- NOTE | 2022-04-05 19:20 | NUR ---
CATERER'S AIDE CLOSING NOTES PT CURRENTLY AWAKE IN BED. PATIENT IS ALERT AND ORIENTED X4, ABLE TO MAKE NEEDS KNOWN. PT ON ROOM AIR, TOLERATING WELL. NO SOB NOTED AT THIS TIME. NOT IN ANY SIGN OF RESPIRATORY DISTRESS. ON TELE [employer] FLATBED DRIVER WITH CURRENT READING OF SINUS RHYTHM, HR 72. NO C/O OF CARDIAC DISTRESS VOICED OUT AT THIS TIME. IV ACCESS ON LEFT HAND G#22 INTACT AND PATENT WITH D5 1/2 NS INFUSING AT 75ML/HR. ALL NEEDS ATTENDED. KEPT CLEAN AND COMFORTABLE AT ALL TIMES. SAFETY MEASURES INITIATED: BED IN LOWEST AND LOCKED POSITION, SIDE RAILS UP X2, AND CALL LIGHT WITHIN REACH. ENDORSED TO GLASS OR MIRROR INSPECTOR NURSE FOR LAYLA.
[2022-04-05 20:00] VITALS: BP 137/80
[2022-04-05 21:42] VITALS: BP 137/80
[2022-04-05] MEDS ORDERED: SIMVASTATIN 20 MG TABLET PO SCH (22:00)
[2022-04-05] MEDS ORDERED: AMITRIPTYLINE HCL 25 MG TABLET PO SCH (22:00)
[2022-04-06] VITALS: BP 142/82
[2022-04-06 01:02] VITALS: BP 142/82
[2022-04-06] MEDS: METRONIDAZOLE 500MG/ NS 100ML 500 MG in PREMIX 1 EA IV SCH ×3 (02:51→17:29)
--- NOTE | 2022-04-06 05:33 | NUR ---
END OF SHIFT REPORT Patient in bed, Alert Oriented x4. Oxygen sat high 90's in RA. Sinus Rhythm in the Tele monitor HR 80's. Left hand IV line intact, IVF continuous, good appetite. On IV abx Afebrile. V/S stable. LLE splint in place. Limited movement LLE d/t pain. NWB LLE per Ortho. Pain controlled. No BM during the shift. Fall precaution maintained. Will endorse to oncoming RN.
[2022-04-06 05:57] LABS: BASOPHILS % (AUTO) 0.3 % (0.0-2.0); HEMATOCRIT 40 % (33-45); HEMOGLOBIN 12.9 g/dL (11.5-14.8); LYMPHOCYTES # (AUTO) 1.4 K/uL (0.8-4.8); LYMPHOCYTES % (AUTO) 19.4 % (20.0-44.0); MEAN CORPUSCULAR HGB CONC 33 g/dl (31.0-36.0); MEAN CORPUSCULAR VOLUME 84 fL (82-100); MONOCYTES # (AUTO) 0.7 K/uL (0.1-1.30); MONOCYTES % (AUTO) 9.9 % (2.0-12.0); NEUTROPHILS # (AUTO) 4.8 K/uL (1.8-8.9); NEUTROPHILS % (AUTO) 68.4 % (43.0-81.0); PLATELET COUNT (AUTO) 206 K/uL (150-450); RED BLOOD CELL COUNT(AUTO) 4.72 MIL/uL (4.0-5.2)
[2022-04-06 06:12] LABS: CALCIUM, SERUM 8.2 mg/dL (8.5-10.1); CREATININE 0.8 mg/dL (0.6-1.3); MAGNESIUM 2.2 mg/dL (1.8-2.4); PHOSPHORUS 3.7 mg/dL (2.5-4.9); POTASSIUM 3.3 mmol/L (3.5-5.1)
[2022-04-06 06:22] VITALS: BP 154/80
[2022-04-06] MEDS: BLOOD SUGAR DIAGNOSTIC 1 EACH STRIP VI SCH ×3 (06:27→17:16)
[2022-04-06 06:31] LABS: THYROID STIMULATING HORMONE 2.085 uIU/mL (0.358-3.74)
[2022-04-06] MEDS: INSULIN REGULAR, HUMAN 100 UNIT/ML 3 ML VIAL SQ PRN ×2 (06:31→17:52)
[2022-04-06 07:00] VITALS: BP 121/72
--- NOTE | 2022-04-06 07:10 | NUR ---
MS RN RECEIVED ON BED, AWAKE,ALERT,ORIENTED X4,CAME IN W/ SYNCOPAL EPISODE, WITH LEFT ANKLE IMMOBILIZER,DENIES PAIN AT THIS TIME, NO SHORTNESS OF BREATH, IV GOING ON AT LEFT HAND D51/2 NS AT 75ML/HR TOLERATING WELL.REPOSITIONED FOR COMFORT,CALL LIGHT W/IN REACH, WILL MONITOR PATIENT.
[2022-04-06] MEDS: PANTOPRAZOLE 40 MG TABLET.DR PO SCH (07:52)
[2022-04-06] MEDS: TRAMADOL HCL 50 MG TABLET PO PRN (08:56)
[2022-04-06] MEDS ORDERED: FLUTICASONE/VILANTEROL 1 EACH BLST.W.DEV IH SCH (09:00)
[2022-04-06] MEDS ORDERED: POTASSIUM CHLORIDE 20 MEQ TAB.PRT.SR PO SCH (09:00)
--- NOTE | 2022-04-06 09:50 | NUR ---
ms amado breakfast served,due meds given,tolerated well.
[2022-04-06] MEDS ORDERED: HYDR-3972 PO (11:29)
[2022-04-06] MEDS ORDERED: HYDROCODONE/APAP 5/325MG TABLET PO PRN (11:30)
[2022-04-06 12:00] VITALS: BP 149/79
--- NOTE | 2022-04-06 14:00 | NUR ---
ms rn medicated for pain before be seen by PT.
[2022-04-06 16:00] VITALS: BP 142/79
[2022-04-06] MEDS: RIVAROXABAN 10 MG TABLET PO SCH (17:17)
--- NOTE | 2022-04-06 17:59 | NUR ---
ms rn on bed, for discharge to [facility], all needs attended.
== END 2022-04-06 18:00 | DRG 74 ==
LOC: ER 04:00 → TELE 08:45
PROVIDERS: ADMIT Internal Medicine; ATTEND Internal Medicine
DX: G90.8 Other disorders of autonomic nervous system (principal); E86.0 Dehydration; K58.0 Irritable bowel syndrome with diarrhea; Z20.822 Contact with and (suspected) exposure to COVID-19; E78.5 Hyperlipidemia, unspecified; I10 Essential (primary) hypertension; Z79.01 Long term (current) use of anticoagulants; Z86.711 Personal history of pulmonary embolism; J45.909 Unspecified asthma, uncomplicated; Z98.1 Arthrodesis status; Z98.890 Other specified postprocedural states; Z88.8 Allergy status to other drugs, medicaments and biological substances; Z79.51 Long term (current) use of inhaled steroids; Z79.84 Long term (current) use of oral hypoglycemic drugs; Z79.899 Other long term (current) drug therapy; E11.9 Type 2 diabetes mellitus without complications; I48.91 Unspecified atrial fibrillation; I25.10 Atherosclerotic heart disease of native coronary artery without angina pectoris; Z87.891 Personal history of nicotine dependence; Z96.652 Presence of left artificial knee joint; S82.52XA Displaced fracture of medial malleolus of left tibia, initial encounter for closed fracture; W19.XXXA Unspecified fall, initial encounter; Y92.129 Unspecified place in nursing home as the place of occurrence of the external cause; I95.1 Orthostatic hypotension
CPT/HCPCS: 36415; 70450-TC; 73610-TC; 80048-TC; 82962-TC; 83735-TC; 84100-TC; 84443-TC; 85025-TC; 87081-TC; 93307-TC; 97112-TC; 97530-TC; A4216; A4223; C9803; G0378; J1815; J3490; J7030; J7040